=== PATIENT | female | born 1965 | race Caucasian/White ===

== ENCOUNTER 2018-07-18 17:08 | Emergency (ER) | payer MEDICAID ==
[~2018-07-18] VITALS: Ht 177.8 cm; Wt 92.1 kg
[2018-07-18 17:42] VITALS: BP 118/88; Ht 177.8 cm; Wt 92.1 kg
== END 2018-07-18 17:56 | disposition left against medical advice (07) ==
LOC: ED 17:08
DX: F29 Unspecified psychosis not due to a substance or known physiological condition (principal)